=== PATIENT | female | born 1980 | race Caucasian/White ===

== ENCOUNTER 2018-04-17 09:01 | Emergency (ER) | payer BC, OTHER ==
[2018-04-17 09:08] VITALS: BP 107/65; PULSE 77; TEMP 97.6; BMI 19.7
--- NOTE | 2018-04-17 09:36 | PDOC ---
Documentation entered by Grace Walsh SCRIBE, acting as scribe for Lucie Wray MD. History of Present Illness - General Chief Complaint: Vaginal Bleeding Stated Complaint: BLEEDING Time Seen by Provider: 04/17/18 09:17 History Source: Patient Exam Limitations: No Limitations - History of Present Illness Initial Comments: 04/17/18 09:34 The patient is a 38 year old female, , 11 weeks on US, with no significant past medical history, who presents to the emergency department with vaginal bleeding this morning which has now resolved. She states she noticed a couple of significant blood drops from her vagina into the toilet which made the toilet water red. She states she had some associated abdominal cramping for about 30 minutes which is now resolved. She states she drove from [place] to this ED and did not experience any further abdominal cramping or vaginal bleeding. The patient denies chest pain, shortness of breath, headache and dizziness. The patient denies fever, chills, nausea, vomit, diarrhea and constipation. The patient denies dysuria, frequency, urgency and hematuria. Allergies: cefaclor Food Technician: Dr. Boogie CONSTITUTIONAL: Absent: fever, no chills, no fatigue EYES: Absent: visual changes ENT: Absent: ear pain, no sore throat CARDIOVASCULAR: Absent: chest pain, no palpitations RESPIRATORY: Absent: cough, no SOB GASTROINTESTINAL: Absent: abdominal pain, no nausea, no vomiting, no constipation, no diarrhea GENITOURINARY: Absent: dysuria, no frequency, no hematuria REPRO: (+) vaginal bleeding in with associated abdominal cramping now resolved. MUSCULOSKELETAL: Absent: back pain, no arthralgia, no myalgia SKIN: Absent: rash NEURO: Absent: headache GENERAL: The patient is in no acute distress. HEAD: Normal with no signs of trauma. EYES: PERRLA, EOMI, sclera anicteric, conjunctiva clear. ENT: Ears normal, nares patent, oropharynx clear without exudates. Moist mucous membranes. NECK: Normal range of motion, supple without lymphadenopathy, JVD, or masses. LUNGS: Breath sounds equal, clear to auscultation bilaterally. No wheezes, and no crackles. HEART:Regular rate and rhythm, normal S1 and S2 without murmur, rub or gallop. ABDOMEN: Soft, nontender, normoactive bowel sounds. No guarding, no rebound. No masses palpable. EXTREMITIES: Normal range of motion, no edema. No clubbing or cyanosis. No erythema, or tenderness. NEUROLOGICAL: Cranial nerves II through XII grossly intact. Normal speech. No focal neurological deficits. MUSCULOSKELETAL: Back non-tender to palpation, no CVA tenderness SKIN: Warm, Dry, normal turgor, no rashes or lesions noted. Past History - Past Medical History Allergies/Adverse Reactions: Allergies Allergy/AdvReac Type Severity Reaction Status Date / Time cefaclor [From Ceclor] Allergy Severe Swelling Verified 04/17/18 09:06 COPD: No - Immunization History Immunization Up to Date: Yes - Suicide/Smoking/Psychosocial Hx Smoking History: Never smoked Hx Alcohol Use: No Drug/Substance Use Hx: No Review of Systems - Review of Systems Able to Perform ROS?: Yes *Physical Exam - Vital Signs Last Vital Signs Temp Pulse Resp BP Pulse Ox 97.6 F 77 18 107/65 100 04/17/18 09:04 04/17/18 09:04 04/17/18 09:04 04/17/18 09:04 04/17/18 09:04 Moderate Sedation - Procedure Monitoring Vital Signs: Procedure Monitoring Vital Signs Temperature 97.6 F 04/17/18 09:04 Pulse Rate 77 04/17/18 09:04 Respiratory Rate 18 04/17/18 09:04 Blood Pressure 107/65 04/17/18 09:04 O2 Sat by Pulse Oximetry (%) 100 04/17/18 09:04 Lucie Wray MD: This documentation has been prepared by the Nico rasmussen Amanda, SCRIBE, under my direction and personally reviewed by me in its entirety. I confirm that the documentation accurately reflects all work, treatment, procedures, and medical decision making performed by me.
[2018-04-17 10:06] LABS: BASO % 0.3 % (0-2.0); EOS % 0.5 % (0-4.5); HEMATOCRIT 39.4 % (32.4-45.2); HEMOGLOBIN 13.7 GM/dL (10.7-15.3); LYMPH % 20.3 % (8-40); MCH 31.8 pg (25.7-33.7); MCHC 34.7 g/dl (32.0-36.0); MEAN CELL VOLUME 91.7 fl (80-96); MEAN PLT VOLUME 7.3 fl (7.5-11.1); MONO % 6.4 % (3.8-10.2); NEUT % 72.5 % (42.8-82.8); PLATELET COUNT 268 K/MM3 (134-434); RDW 12.6 % (11.6-15.6); WHITE BLOOD COUNT 7.9 K/mm3 (4.0-10.0)
[2018-04-17 10:12] LABS: URINE APPEARANCE CLEAR; URINE BILIRUBIN NEGATIVE (<2.0 mg/dL); URINE COLOR COLORLESS; URINE GLUCOSE (UA) NEGATIVE (NEGATIVE); URINE KETONE NEGATIVE (NEGATIVE); URINE LEUK ESTERASE NEGATIVE (NEGATIVE); URINE NITRITE NEGATIVE (NEGATIVE); URINE PROTEIN NEGATIVE (NEGATIVE); URINE UROBILINOGEN NEGATIVE mg/dL (0.2-1.0)
[2018-04-17 11:18] LABS: ALBUMIN 4.2 g/dl (3.4-5.0); ALK PHOS 36 U/L (45-117); ANION GAP 7 MMOL/L (8-16); BILIRUBIN,TOTAL 0.4 mg/dL (0.2-1); BLOOD UREA NITROGEN 11 mg/dL (7-18); CALCIUM 9.2 mg/dL (8.5-10.1); CHLORIDE 103 mmol/L (98-107); CO2 25 mmol/L (21-32); CREATININE 0.5 mg/dL (0.55-1.3); GLUCOSE,RANDOM 76 mg/dL (74-106); POTASSIUM 4.4 mmol/L (3.5-5.1); SGOT/AST 17 U/L (15-37); SGPT/ALT 32 U/L (13-61); SODIUM 135 mmol/L (136-145); TOT PROT 7.3 g/dl (6.4-8.2)
== END 2018-04-17 11:01 | disposition home or self-care (01) ==
LOC: JER 09:01
DX: O26.891 Other specified pregnancy related conditions, first trimester (principal); O20.8 Other hemorrhage in early pregnancy; O34.81 Maternal care for other abnormalities of pelvic organs, first trimester; N83.12 Corpus luteum cyst of left ovary; Z3A.11 11 weeks gestation of pregnancy
CPT/HCPCS: 36415; 76801-TC; 80053; 81003; 84702; 85025; 86850; 86900; 86901; 87086; 99281-25

== ENCOUNTER 2018-05-21 14:40 | Day surgery (SDC) | payer OTHER ==
[2018-05-21] MEDS ORDERED: KETOROLAC TROMETHAMINE 30 MG/1 ML VIAL ONE (15:07)
[2018-05-21] MEDS ORDERED: DEXAMETHASONE SOD PHOSPHATE 4 MG/1 ML VIAL ONE ×2 (15:07→18:48)
[2018-05-21] MEDS ORDERED: LIDOCAINE HCL/PF 2% SDV 5ML VIAL ONE (15:07)
[2018-05-21] MEDS ORDERED: PHENYLEPHRINE HCL 10 MG/1 ML SINGLE DOSE VIAL ONE (15:11)
[2018-05-21 15:31] VITALS: BMI 21.0
[2018-05-21] MEDS ORDERED: ONDANSETRON 4 MG/2 ML VIAL IVPUSH PRN (17:06)
[2018-05-21] MEDS ORDERED: oxyCODONE HCL 5 MG TABLET PO PRN ×2 (17:06)
[2018-05-21] MEDS ORDERED: LACTATED RINGERS SOLUTION 1,000 ML IV SCH (17:15)
[2018-05-21] MEDS ORDERED: MIDAZOLAM HCL 2 MG/2 ML SINGLE DOSE VIAL ONE (18:09)
[2018-05-21] MEDS ORDERED: PROPOFOL 20 ML ONE ×3 (18:11→18:51)
--- NOTE | 2018-05-21 18:26 | HP ---
History & Physical Update - History History: No Change (Missed Ab at EGA 13w6d by US measurements) - Physical Physical: No Change - Assessment Assessment: No Change - Plan Plan: No Change (D&E)
[2018-05-21] MEDS ORDERED: CLINDAMYCIN PHOSPHATE 600 MG/4 ML VIAL ONE (18:48)
[2018-05-21] MEDS ORDERED: OXYTOCIN 10 UNITS/ML VIAL ONE (19:05)
--- NOTE | 2018-05-21 19:52 | OP ---
Operative Note - Note: Operative Date: 05/21/18 Pre-Operative Diagnosis: Missed Ab at 13 6/7wks by US measurements Operation: Surgical Tx of missed Ab <14wk Findings: Preop US confirmed IUFD. Real time US guided D&E was done w/o complications. No RPOC noted after procedure. Post-Operative Diagnosis: Same as Pre-op Surgeon: Rosendo Boogie Anesthesiologist/PLATE EMBOSSER: Luz Sosa Anesthesia: General Specimens Removed: POC Estimated Blood Loss (mls): 500 Blood Volume Replaced (mls): 0 Fluid Volume Replaced (mls): 1,000 Operative Report Dictated: Yes
[2018-05-21] MEDS ORDERED: METHYLERGONOVINE MALEATE 0.2 MG/1 ML AMP IM ONE (20:00)
[2018-05-21 21:20] VITALS: BP 132/70; PULSE 72; TEMP 98.2
--- NOTE | 2018-05-22 08:37 | OP ---
DATE OF OPERATION: 05/21/2018 PREOPERATIVE DIAGNOSIS: Missed at estimated gestational age of 13 weeks and 6 days by ultrasound measurements. POSTOPERATIVE DIAGNOSIS: Missed at estimated gestational age of 13 weeks and 6 days by ultrasound measurements. PROCEDURE: Surgical treatment of missed under 14 weeks (dilatation and evacuation). SURGEON: Javad Preston MD ANESTHESIOLOGIST: Luz Sosa MD ANESTHESIA: General. COMPLICATIONS: None. INTRAVENOUS FLUIDS: 1000 mL. ESTIMATED BLOOD LOSS: 500 mL. PATHOLOGY: Products of conception. FINDINGS: Preoperative ultrasound examination showed a single intrauterine with no heartbeat noted consistent with a diagnosis of missed , real time ultrasound-guided D and E was performed. No retained tissue or products of conception were noted at the end of the procedure. DESCRIPTION OF PROCEDURE: The patient was met preoperatively. Risks, benefits, and alternatives of surgery were discussed in details. All questions were answered. The patient was then brought to the OR with the IV running. She was placed on the surgical table in the supine position. The general anesthesia was achieved without difficulty. The patient was then placed in a dorsal lithotomy position using adjustable George stirrups. The patient was examined under anesthesia. The examination showed an anteverted uterus consistent with approximately 14 weeks of gestation. No pelvic or adnexal masses were noted. An ultrasound was performed and confirmed intrauterine gestation with crown-rump length measuring 13 weeks and 3 days consistent with a previous ultrasound study documenting missed at approximately 13 weeks and 6 days performed earlier. At that time, a time-out procedure was done as per standard protocol. The patient was then prepped and draped in the usual sterile fashion. A sterile speculum was introduced inside the vagina with good visualization of the cervix. The cervix appeared within normal limits. The cervix was grasped with a single-tooth tenaculum. Graduated dilators were used in succession to gently dilate the cervix to accommodate a size 37 Melgoza dilator. A 12-mm suction curette was then used to evacuate the uterine contents under direct ultrasound guidance. The ultrasound-guided procedure was performed without complications. No retained products of conception were noted at the end of the procedure. A gentle uterine curettage was performed to assure no retained tissue. Once the procedure was completed, all of the instruments were removed. A bimanual uterine massage was performed to achieve a good uterine contraction. The uterus was noted to be firm and well contracted. Good hemostasis was noted. Sponge, lap, and needle counts were correct. The patient was then returned to supine position. She was transferred to the recovery room in stable condition. The entire surgical procedure was performed under real time ultrasound guidance from beginning to end without complications. JAVAD PRESTON M.D. [id number]
--- NOTE | 2018-05-23 19:21 | PATH ---
Surgical Pathology Report Patient Name: AGUSTIN SPENCER Med. Rec. #: [id number] /Age/Gender: 1980 (Age: 38) / F Account: [id number] Location: [facility] Taken: 05/21/2018 Received: 05/22/2018 Reported: 05/23/2018 Physicians: Rosendo Boogie M.D. Specimen(s) Received PRODUCTS OF CONCEPTION Clinical History Missed at 16 weeks by dates and 13 and 6/7 weeks by sonogram Final Diagnosis PRODUCTS OF CONCEPTION, DILATION AND CURETTAGE: IMMATURE CHORIONIC VILLI AND SOMATIC TISSUE CONSISTENT WITH PRODUCTS OF CONCEPTION. CHROMOSOMAL STUDIES ARE PENDING AND WILL BE REPORTED SEPARATELY AN ADDENDUM. Electronically Signed Samara Zuniga M.D. Gross Description Received fresh in 2 separate containers labeled "products of conception," is a 16.0 x 15.0 x 3.0 cm aggregate of anthony-red tissue fragments admixed with blood clot. There is villous tissue identified within the smaller container. The larger container displays somatic tissue. An identifiable foot measures 1.2 cm from heel to toe. A medical field representative portion of villous tissue is placed in RPMI solution and sent for chromosomal analysis. [employer] sections are submitted in 2 cassettes as follows: 1-villous tissue; 2- somatic tissue. 05/22/2018 [facility]05/22/2018
== END 2018-05-21 21:15 | disposition home or self-care (01) ==
LOC: JASU-SURG 14:40
PROVIDERS: ATTEND Obstetrics & Gynecology
PROC: 10D17ZZ Extraction of Products of Conception, Retained, Via Natural or Artificial Opening (ICD-10-PCS; principal; 2018-05-21 16:00)
DX: O02.1 Missed abortion (principal); Z3A.13 13 weeks gestation of pregnancy
CPT/HCPCS: 76998-TC; 88305-TC; 94760

== ENCOUNTER 2018-12-19 04:55 | Day surgery (SDC) | payer OTHER ==
[2018-12-18 16:37] VITALS: BMI 25.6
[2018-12-19] MEDS ORDERED: MIDAZOLAM HCL 2 MG/2 ML SINGLE DOSE VIAL ONE (13:33)
[2018-12-19] MEDS ORDERED: PROPOFOL 20 ML ONE ×4 (13:33→13:57)
[2018-12-19] MEDS ORDERED: ONDANSETRON 4 MG/2 ML VIAL IVPUSH PRN (13:52)
[2018-12-19] MEDS ORDERED: OXYTOCIN 10 UNITS/ML VIAL ONE (13:53)
[2018-12-19] MEDS ORDERED: LACTATED RINGERS SOLUTION 1,000 ML IV SCH (14:00)
--- NOTE | 2018-12-19 15:13 | HP ---
History & Physical Update - History History: No Change - Physical Physical: No Change - Assessment Assessment: No Change (IUFD at 14w5d) - Plan Plan: No Change (D&E under direct US guidance)
--- NOTE | 2018-12-19 15:17 | OP ---
Operative Note - Note: Operative Date: 12/19/18 Pre-Operative Diagnosis: IUFD at 14w5d Operation: D&C under direct US guidance Findings: Missed Ab at 14w5d. No RPOC at end of procedure. Uterine cavity appeared WNL. Post-Operative Diagnosis: Same as Pre-op Surgeon: Rosendo Boogie Anesthesiologist/EMS EDUCATOR: Jim Dietrich Anesthesia: General Specimens Removed: POC Estimated Blood Loss (mls): 50 Blood Volume Replaced (mls): 0 Fluid Volume Replaced (mls): 1,000 Operative Report Dictated: Yes
[2018-12-19 17:41] VITALS: PULSE 70
[2018-12-19 18:13] VITALS: BP 110/70; TEMP 98.7
--- NOTE | 2019-01-01 11:23 | OP ---
DATE OF OPERATION: 12/19/2018 PREOPERATIVE DIAGNOSIS: Missed at 14 weeks and 5 days. POSTOPERATIVE DIAGNOSIS: Missed at 14 weeks and 5 days. OPERATION: Dilation and evacuation under direct ultrasound guidance. SURGEON: Rosendo Boogie MD ANESTHESIOLOGIST: Jim Dietrich MD ANESTHESIA: General. COMPLICATIONS: None. ESTIMATED BLOOD LOSS: 50 mL. INTRAVENOUS FLUIDS: 1000 mL. PATHOLOGY: Products of conception. FINDINGS: Examination under anesthesia showed an enlarged uterus consistent with approximately 15-week . Preoperative ultrasonography confirmed intrauterine demise with the at approximately 14 weeks and 15 days of gestation. No heart rate was detected. Intraoperative ultrasound guidance confirmed no retained products of conception. During surgery, intraoperative ultrasound showed what appeared to be a normal uterine cavity with no defects. DESCRIPTION OF PROCEDURE: The patient was met preoperatively. Risks, benefits, and alternatives of surgery were discussed at least. The consent form was reviewed and discussed. The patient verbalized her understanding. The patient requested to proceed with h surgery. She was brought to the OR with the IV running. The patient was placed on the surgical table in the supine position. The general anesthesia was achieved without difficulty. The patient was then placed in a dorsal lithotomy position using adjustable George stirrups. She was examined under anesthesia with the findings as described above. The time-out procedure was conducted as per standard protocol. The patient was prepped and draped in the usual sterile fashion. A weighted speculum was introduced inside the vagina with good visualization of the cervix. The cervix was grasped with a single-tooth tenaculum. The cervical os was dilated to accommodate a size 37 Melgoza dilator. The entire procedure was done under direct visualization with ultrasound. The uterine contents were evacuated using a suction curette. Once all of the uterine contents were evacuated, the uterus was explored using a sharp curette to ensure to retained products of conception. Once this was completed, a suction curettage was performed once again to remove all of the blood clots. The uterus was noted to be well contracted. No retained products of conception were noted. The procedure was uncomplicated. Good hemostasis was confirmed. Once the patient was completed, the patient was returned to supine position. She was transferred to recovery room awake and in stable condition. Sponge, lap, instrument counts were correct. Chevy [id number]
--- NOTE | 2019-01-12 09:50 | PATH ---
Surgical Pathology Report Patient Name: AGUSTIN SPENCER Med. Rec. #: [id number] /Age/Gender: 1980 (Age: 38) / F Account: [id number] Location: [facility] Taken: 12/19/2018 Received: 12/19/2018 Reported: 01/12/2019 Physicians: Rosendo Boogie M.D. Specimen(s) Received PRODUCTS OF CONCEPTION Clinical History Genetic susceptibility Final Diagnosis UTERINE CONTENTS, DILATION AND CURETTAGE: DIPLOID GESTATION WITH ABNORMAL VILLOUS MORPHOLOGY AND RETAINED P57 EXPRESSION. SEE COMMENT. Comment: The ploidy and p57 results do not support a molar gestation. However, a partial hydatidiform is not entirely excluded in view of the villous morphology. The existence of diploid partial mole is controversial, but rare purported cases have been reported. See Int J Gynecology and Obstetrics Vol. 69, Issue 2, June 1999, pages 149-152 and Nikko Campbell. 2011; 83(10):789-791. Clinical follow-up should therefore be considered. There is no evidence of a complete mole. This case was sent to Dr. Dmitriy Baez from [facility], [place], [place] ([id number]) the diagnosis above reflects his opinion. Marker Result Description P57 Positive Molar vs. Non-Molar Gestation DNA Index/Ploidy 1.00 Molar vs. Non-Molar Gestation % S-Phase 1.2 Molar vs. Non-Molar Gestation CHROMOSOME ANALYSIS performed and interpreted at [facility], [place], [place] (Specimen #: [id number]) shows the following: RESULTS: 46, XX Female karyotype INTERPRETATION: Normal karyotype (female) within the limits of resolution attained. Analysis was performed on chorionic villi dissected from the specimen submitted. These results most likely reflect rather than maternal karyotype. RECOMMENDATION: If the couple has a history of repeated losses of unknown etiology, or there are other indications of a familial chromosome rearrangement, blood chromosome analysis of the parents should be considered (5 cc of blood in green top sodium heparin tubes). Blood chromosome analysis usually provides greater resolution than POC chromosome analysis. COMMENT: The standard cytogenetic methodology utilized in this analysis does not routinely detect subtle rearrangements or low-level mosaicism and cannot detect microdeletions. Also, it cannot detect molecular cytogenetic abnormalities (such as microdeletions and microduplications) that may be detectable by microarray analysis. REVEAL SNP MICROARRAY ANALYSIS performed and interpreted at [facility], [place], [place] (Specimen #: [id number]) shows the following: RESULTS: Normal Female INTERPRETATION: arr[hg19](1-22,X)x2 The whole genome chromosome SNP microarray (Reveal) analysis was normal. No significant changes in the 2.695 million region specific SNP and structural targets were detected within the thresholds and specifications indicated below. No admixture of and maternal DNA was noted in this microarray analysis. See [facility] report for additional details (Specimen #: [id number], [id number], [id number]). Findings discussed with Dr. Boogie. Electronically Signed Samara Zuniga M.D. Gross Description Received fresh labeled "uterine contents for chromosomal studies," is a 13.0 x 10.5 x 0.8 cm aggregate of anthony red soft tissue fragments. Villous tissue and somatic tissue is identified. The identifiable hand measures 1.1 cm in length. A pharmaceutical sales representative portion is placed in RPMI solution and sent for chromosomal studies. An additional pharmaceutical sales representative portion is submitted in one cassette. 12/19/2018 [facility]12/19/2018
== END 2018-12-19 17:45 | disposition home or self-care (01) ==
LOC: JASU-SURG 04:55
PROVIDERS: ATTEND Obstetrics & Gynecology
PROC: 10D17ZZ Extraction of Products of Conception, Retained, Via Natural or Artificial Opening (ICD-10-PCS; principal; 2018-12-19 14:00)
DX: O02.1 Missed abortion (principal); Z3A.14 14 weeks gestation of pregnancy
CPT/HCPCS: 76998-TC; 88305-TC; 94760

== ENCOUNTER 2022-11-21 14:07 | Emergency (ER) | payer OTHER ==
[2022-11-21] MEDS ORDERED: DEXAMETHASONE SOD PHOSPHATE 10 MG/1 ML VIAL IVPUSH ONE (14:53)
[2022-11-21] MEDS ORDERED: diazePAM 5 MG TABLET PO ONE (14:53)
[2022-11-21] MEDS ORDERED: DEXAMETHASONE SOD PHOSPHATE 10 MG/1 ML VIAL ONE (15:14)
[2022-11-21] MEDS ORDERED: diazePAM 5 MG TABLET ONE (15:15)
[2022-11-21 15:57] LABS: HEMATOCRIT 38.9 % (32.4-45.2); HEMOGLOBIN 13.3 G/dL (10.7-15.3); MCH 30.4 pg (25.7-33.7); MCHC 34.1 g/dl (32.0-36.0); MEAN CELL VOLUME 89.3 fl (80-96); MEAN PLT VOLUME 7.8 fl (7.5-11.1); PLATELET COUNT 297.3 10^3/uL (134-434); RBC 4.36 10^6/uL (3.60-5.2); RDW 13.8 % (11.6-15.6); WHITE BLOOD COUNT 9.6 10^3/uL (4.0-10.8)
[2022-11-21 16:08] LABS: INR 0.97 (0.83-1.09); PROTHROMBIN TIME (PATIENT) 11.3 SEC (9.7-13.0)
[2022-11-21 16:10] LABS: ACTIVATED PTT 31.4 SECONDS (25.2-36.5)
[2022-11-21 16:19] LABS: ALBUMIN 5.1 g/dl (3.4-5.0); BILIRUBIN,TOTAL 0.4 mg/dl (0.2-1); BLOOD UREA NITROGEN 10.4 mg/dl (7-18); CALCIUM 9.8 mg/dl (8.5-10.1); CREATININE 0.6 mg/dl (0.6-1.3); POTASSIUM 4.3 mmol/L (3.5-5.1); SGOT/AST 12.9 U/L (15-37); SGPT/ALT 8.6 U/L (7-52); TOT PROT 7.3 g/dl (6.4-8.2)
[2022-11-21] MEDS ORDERED: ACETAMINOPHEN 500 MG TABLET (FP) PO ONE (16:37)
[2022-11-21 16:39] LABS: PLATELET ESTIMATE ADEQUATE
[2022-11-21] MEDS ORDERED: ACETAMINOPHEN 500 MG TABLET (FP) ONE (16:46)
[2022-11-21 17:33] VITALS: BP 115/82; PULSE 58; RESP 16; TEMP 98.9; BMI 22.8
== END 2022-11-21 18:53 | disposition home or self-care (01) ==
LOC: FER 14:07
PROC: 3E033GC Introduction of Other Therapeutic Substance into Peripheral Vein, Percutaneous Approach (ICD-10-PCS; principal; 2022-11-21)
DX: M54.2 Cervicalgia (principal); M54.12 Radiculopathy, cervical region; X50.0XXA Overexertion from strenuous movement or load, initial encounter
CPT/HCPCS: 36415; 72125-TC; 80053; 84703; 85027; 85610; 85730; 86850; 86900; 86901; 99284-25; J1100